=== PATIENT | male | born 1930 | race Caucasian/White ===

== ENCOUNTER → 2019-06-17 | Outpatient (CLI) | payer OTHER, BC ==
[~2019-06-17] MED LIST: AMARYL2 M1 PO; ASPIRIN325 PO; ATORVASTATIN CA40 MG PO; BUPROPION XL150 MG PO; CARBIDOPA-LEVO1 EAC9 PO; COQ-10100 MG PO; COREG25 MG PO; COREG3.125 MG PO; FISH OIL 1,001000 M2 PO; FUROSEMIDE 40 M40 MG PO; GLUMETZA500 PO; LASIX 40 MG TAB40 M2 PO; LIPITOR 20 MG T20 M1 PO; NEPHROCAPS QT1 EACH PO; PACERONE 200 M200 M1 PO; PAXIL30 MG PO; QUINU10 PD PO; SYNTHROID100 MC1 PO; SYNTHROID100 MCG PO; UNICOMPLEX M TA1 TA1 PO; ZOLOFT25 MG PO
== END ==
LOC: SJCVC 16:19
DX: I44.7 Left bundle-branch block, unspecified (principal); R94.31 Abnormal electrocardiogram [ECG] [EKG]; I25.5 Ischemic cardiomyopathy; I47.2 Ventricular tachycardia; E11.9 Type 2 diabetes mellitus without complications; K21.9 Gastro-esophageal reflux disease without esophagitis; E78.00 Pure hypercholesterolemia, unspecified; I10 Essential (primary) hypertension; E03.9 Hypothyroidism, unspecified; Z95.810 Presence of automatic (implantable) cardiac defibrillator; Z95.1 Presence of aortocoronary bypass graft; Z87.891 Personal history of nicotine dependence

== ENCOUNTER → 2019-06-28 | Outpatient (CLI) | payer OTHER, BC ==
[~2019-06-28] MED LIST changes: -AMARYL2 M1 PO; -BUPROPION XL150 MG PO; -CARBIDOPA-LEVO1 EAC9 PO; -COREG3.125 MG PO; -FUROSEMIDE 40 M40 MG PO; -GLUMETZA500 PO; -LIPITOR 20 MG T20 M1 PO; -PACERONE 200 M200 M1 PO; -PAXIL30 MG PO; -SYNTHROID100 MC1 PO
== END ==
LOC: SJCVCIMAG
DX: I08.3 Combined rheumatic disorders of mitral, aortic and tricuspid valves (principal); I25.5 Ischemic cardiomyopathy; G20 Parkinson's disease; Z95.5 Presence of coronary angioplasty implant and graft

== ENCOUNTER → 2019-06-29 | Outpatient (CLI) | payer OTHER, BC | LOC: RAD 16:32 | DX: R06.00 Dyspnea, unspecified (principal) ==

== ENCOUNTER → 2019-06-29 | Outpatient (CLI) | payer OTHER, BC ==
[~2019-06-29] MED LIST changes: +AMARYL2 M1 PO; +BUPROPION XL150 MG PO; +CARBIDOPA-LEVO1 EAC9 PO; +COREG3.125 MG PO; +FUROSEMIDE 40 M40 MG PO; +GLUMETZA500 PO; +LIPITOR 20 MG T20 M1 PO; +PACERONE 200 M200 M1 PO; +PAXIL30 MG PO; +SYNTHROID100 MC1 PO
== END ==
LOC: SJCVCIMAG 11:36
DX: Z45.02 Encounter for adjustment and management of automatic implantable cardiac defibrillator (principal); I44.7 Left bundle-branch block, unspecified; R94.31 Abnormal electrocardiogram [ECG] [EKG]; I47.2 Ventricular tachycardia; I25.5 Ischemic cardiomyopathy; I10 Essential (primary) hypertension; E11.9 Type 2 diabetes mellitus without complications; I25.810 Atherosclerosis of coronary artery bypass graft(s) without angina pectoris; K21.9 Gastro-esophageal reflux disease without esophagitis; J45.909 Unspecified asthma, uncomplicated; E03.9 Hypothyroidism, unspecified; E78.00 Pure hypercholesterolemia, unspecified; Z87.891 Personal history of nicotine dependence; Z95.1 Presence of aortocoronary bypass graft; Z79.82 Long term (current) use of aspirin; Z79.899 Other long term (current) drug therapy

== ENCOUNTER → 2019-07-07 | Outpatient (CLI) | payer OTHER, BC ==
[~2019-07-07] MED LIST changes: +MIRALAX17 GM PO; +SENNA-TIME S T1 EACH PO; +SORINE 80 MG TA80 M1 PO; +VITAMIN B-12500 MCG PO
== END ==
LOC: SJCVC 12:56
DX: Z45.02 Encounter for adjustment and management of automatic implantable cardiac defibrillator (principal); I25.810 Atherosclerosis of coronary artery bypass graft(s) without angina pectoris; I47.2 Ventricular tachycardia; E11.9 Type 2 diabetes mellitus without complications; G20 Parkinson's disease; I25.5 Ischemic cardiomyopathy; R55 Syncope and collapse; I10 Essential (primary) hypertension; E78.00 Pure hypercholesterolemia, unspecified; Z88.0 Allergy status to penicillin; Z79.899 Other long term (current) drug therapy; Z87.891 Personal history of nicotine dependence

== ENCOUNTER 2019-07-28 15:10 | Inpatient (IN) | payer OTHER, BC ==
[~2019-07-28] VITALS: Ht 167.6 cm; Wt 70.1 kg
[~2019-07-28 15:10] MED LIST changes: -AMARYL2 M1 PO; -BUPROPION XL150 MG PO; -CARBIDOPA-LEVO1 EAC9 PO; -COREG3.125 MG PO; -FUROSEMIDE 40 M40 MG PO; -GLUMETZA500 PO; -LIPITOR 20 MG T20 M1 PO; -MIRALAX17 GM PO; -PACERONE 200 M200 M1 PO; -PAXIL30 MG PO; -SENNA-TIME S T1 EACH PO; -SORINE 80 MG TA80 M1 PO; -SYNTHROID100 MC1 PO; -VITAMIN B-12500 MCG PO
[2019-07-28 15:19] VITALS: BP 151/60
[2019-07-28] MEDS ORDERED: FUROSEMIDE 40 M40 MG PO (15:54)
[2019-07-28] MEDS ORDERED: LIPITOR 20 MG T20 M1 PO (15:54)
[2019-07-28] MEDS ORDERED: COREG3.125 MG PO (15:54)
[2019-07-28] MEDS ORDERED: PAXIL30 MG PO (15:55)
[2019-07-28] MEDS ORDERED: SYNTHROID100 MC1 PO (15:55)
[2019-07-28] MEDS ORDERED: PACERONE 200 M200 M1 PO (15:56)
[2019-07-28] MEDS ORDERED: BUPROPION XL150 MG PO (15:56)
[2019-07-28] MEDS ORDERED: CARBIDOPA-LEVO1 EAC9 PO (15:57)
[2019-07-28] MEDS ORDERED: AMARYL2 M1 PO (15:57)
[2019-07-28 16:01] LABS: URINE BILIRUBIN NEGATIVE (Negative); URINE BLOOD NEGATIVE (Negative); URINE CLARITY CLEAR; URINE COLOR YELLOW; URINE GLUCOSE-RANDOM* NEGATIVE (Negative); URINE KETONES NEGATIVE (Negative); URINE LEUKOCYTES-REFLEX NEGATIVE (Negative); URINE NITRITE-REFLEX NEGATIVE (Negative); URINE PROTEIN (DIPSTICK) NEGATIVE (Negative); URINE SPECIFIC GRAVITY 1.015 (1.005-1.035); URINE UROBILINOGEN 0.2 E.U./dl (0.2-1.0)
[2019-07-28 16:10] LABS: ANION GAP 10 mmol/L (7-16); BUN 39 mg/dL (7-18); CALCIUM 10.1 mg/dL (8.5-10.1); CHLORIDE 97 mmol/L (98-107); CO2 29 mmol/L (21-32); CREATININE 2.1 mg/dL (0.7-1.3); GLUCOSE 104 mg/dL (74-106); SODIUM 136 mmol/L (136-145)
[2019-07-28 16:11] LABS: HEMOGLOBIN 14.1 gm/dL (14.0-18.0)
[2019-07-28 16:13] LABS: HEMATOCRIT 42.2 % (42.0-52.0); MCH 31.9 pg (26.0-34.0); MCHC 33.4 g/dL (28.0-37.0); MCV 95.6 fL (80.0-100.0); PLATELET COUNT 202 thou/uL (150-400); RBC 4.41 mil/uL (4.50-6.00); RDW 15.4 % (10.5-14.5); WBC 8.6 thou/uL (4.0-11.0)
[2019-07-28 16:20] LABS: ALBUMIN 3.7 g/dL (3.4-5.0); DIRECT BILIRUBIN 0.2 mg/dL (<0.1-0.2); LIPASE 49 U/L (73-393); SGOT 29 U/L (15-37); SGPT 13 U/L (30-65); TROPONIN-I <0.06 ng/mL (<0.06)
[2019-07-28 17:30] LABS: ABSOLUTE NEUTROPHILS 7.1 thou/uL (1.4-8.2); PLATELET ESTIMATE NORMAL
[2019-07-28 17:34] VITALS: BP 119/56
[2019-07-28 19:17] VITALS: BP 119/59
[2019-07-28 19:35] VITALS: BP 119/59
[2019-07-29] VITALS (10 sets, daily range): BP systolic 11–117; BP diastolic 50–83
[2019-07-29 05:17] LABS: ALBUMIN 3.1 g/dL (3.4-5.0); CALCIUM 8.9 mg/dL (8.5-10.1); PHOSPHORUS 3.5 mg/dL (2.5-4.9); POTASSIUM 3.7 mmol/L (3.5-5.1)
[2019-07-29 05:40] LABS: HEMATOCRIT 39.4 % (42.0-52.0); MCV 97.1 fL (80.0-100.0); RBC 4.06 mil/uL (4.50-6.00); RDW 15.7 % (10.5-14.5)
--- NOTE | 2019-07-29 08:07 | EKG ---
[facility] [place] [address] ELECTROCARDIOGRAM REPORT Name: MADELAINE RUIZ Room #: 207-P ADM IN M.R.#: [id number] Admission: 07/28/19 Attend Phys: Ariel Kohli MD Discharge: Date of : 08/30/30 Report #: [id number] THIS REPORT FOR: cc: Harry Thompson Eldwin R. DO Lundgren,Tyler Velasquez MD [facility] ~ THIS REPORT FOR: //name// [facility] ED Test Date: 2019-07-28 Test Time: 15:29:43 Pat Name: MADELAINE RUIZ Department: Room: 207 Gender: M Manager Oracle: AUBRIE : 1930 Requested By: Nando Alcantara Order Number: [id number] MD: Tyler Day Measurements Intervals [place] Rate: 64 P: UT: QRS: 66 QRSD: 187 T: QT: 511 QTc: 528 Interpretive Statements Sinus rhythm Left bundle branch block Baseline wander in lead(s) V2 Compared to ECG 04/26/2006 07:09:50 No significant change was found Electronically Signed On 07-29-2019 8:05:55 CDT by Tyler Day [email or web address] <ELECTRONICALLY SIGNED> By: Tyler Day MD, [facility] 07/29/19 0805 1529 1529 Tyler Day MD, [facility] /EPI
[2019-07-29 10:55] LABS: TSH 1.754 uIU/mL (0.358-3.740)
[2019-07-30 00:03] VITALS: BP 108/54
[2019-07-30 04:55] VITALS: BP 120/82
[2019-07-30 05:20] LABS: HEMATOCRIT 40.3 % (42.0-52.0); HEMOGLOBIN 13.3 gm/dL (14.0-18.0); MCH 32.5 pg (26.0-34.0); MCHC 32.9 g/dL (28.0-37.0); MCV 98.8 fL (80.0-100.0); RBC 4.08 mil/uL (4.50-6.00); RDW 15.7 % (10.5-14.5)
[2019-07-30 05:30] LABS: CREATININE 1.6 mg/dL (0.7-1.3); POTASSIUM 4.2 mmol/L (3.5-5.1)
[2019-07-30 08:10] VITALS: BP 116/47
[2019-07-30 15:50] VITALS: BP 99/45
[2019-07-30 21:19] VITALS: BP 131/63
[2019-07-31 04:45] VITALS: BP 121/64
[2019-07-31 05:10] LABS: HEMATOCRIT 38.2 % (42.0-52.0); HEMOGLOBIN 12.6 gm/dL (14.0-18.0); MCH 31.9 pg (26.0-34.0); MCHC 32.9 g/dL (28.0-37.0); MCV 97.1 fL (80.0-100.0); RBC 3.93 mil/uL (4.50-6.00); RDW 15.4 % (10.5-14.5); WBC 7.3 thou/uL (4.0-11.0)
[2019-07-31 05:13] LABS: CALCIUM 9.1 mg/dL (8.5-10.1); CREATININE 1.5 mg/dL (0.7-1.3); POTASSIUM 4.4 mmol/L (3.5-5.1)
[2019-07-31 07:50] VITALS: BP 134/48
[2019-07-31 16:35] VITALS: BP 108/46
[2019-07-31 19:40] VITALS: BP 116/80
[2019-08-01 05:04] VITALS: BP 120/51
[2019-08-01 07:05] VITALS: BP 107/69
[2019-08-01 10:54] LABS: CALCIUM 9.1 mg/dL (8.5-10.1); CREATININE 1.6 mg/dL (0.7-1.3); MAGNESIUM 1.7 mg/dL (1.8-2.4); POTASSIUM 4.8 mmol/L (3.5-5.1)
[2019-08-01 12:43] VITALS: BP 116/63
--- NOTE | 2019-08-01 13:05 | EKG ---
[facility] [place] [address] ELECTROCARDIOGRAM REPORT Name: MADELAINE RUIZ Room #: 207-P ADM IN M.R.#: [id number] Admission: 07/28/19 Attend Phys: Ariel Kohli MD Discharge: Date of : 08/30/30 Report #: [id number] THIS REPORT FOR: cc: Harry Thompson Eldwin R. DO Couchonnal, Luis F. MD ~ THIS REPORT FOR: //name// [facility] Test Date: 2019-07-31 Test Time: 08:59:12 Pat Name: MADELAINE RUIZ Department: Room: 207 P Gender: M Student Services Vice President: Jose RAHMAN : 1930 Requested By: Priscilla Man Order Number: [id number] MD: Jasper Loco Measurements Intervals [place] Rate: 65 P: 65 TX: 159 QRS: 67 QRSD: 181 T: -73 QT: 500 QTc: 520 Interpretive Statements Sinus rhythm Left bundle branch block Baseline wander in lead(s) V3 Compared to ECG 07/28/2019 15:29:43 No significant changes Electronically Signed On 08-01-2019 13:03:35 CDT by Jasper Loco [email or web address] <ELECTRONICALLY SIGNED> By: Jasper Loco MD 08/01/19 1303 0859 0859 Jasper Loco MD /EPI
--- NOTE | 2019-08-01 13:08 | EKG ---
[facility] [place] [address] ELECTROCARDIOGRAM REPORT Name: MADELAINE RUIZ Room #: 207-P ADM IN M.R.#: [id number] Admission: 07/28/19 Attend Phys: Ariel Kohli MD Discharge: Date of : 08/30/30 Report #: [id number] THIS REPORT FOR: cc: Harry Thompson Eldwin R. DO Couchonnal, Luis F. MD ~ THIS REPORT FOR: //name// [facility] Test Date: 2019-08-01 Test Time: 08:28:30 Pat Name: MADELAINE RUIZ Department: Room: 207 P Gender: M Jboss Developer: Krystyna THOMPSON : 1930 Requested By: Priscilla Man Order Number: [id number] MD: Jasper Loco Measurements Intervals [place] Rate: 60 P: [place]: 184 QRS: 82 QRSD: 158 T: 239 QT: 492 QTc: 492 Interpretive Statements Atrial-paced complexes IVCD, consider atypical LBBB Compared to ECG 07/28/2019 15:29:43 Sinus rhythm no longer present Electronically Signed On 08-01-2019 13:06:43 CDT by Jasper Loco [email or web address] <ELECTRONICALLY SIGNED> By: Jasper Loco MD 08/01/19 1306 7 7 Jasper Loco MD /EPI
[2019-08-01 15:30] VITALS: BP 98/49
[2019-08-01 19:55] VITALS: BP 105/62
[2019-08-02 00:56] LABS: HEMATOCRIT 36.3 % (42.0-52.0); HEMOGLOBIN 11.9 gm/dL (14.0-18.0); MCH 31.9 pg (26.0-34.0); MCHC 32.9 g/dL (28.0-37.0); MCV 96.9 fL (80.0-100.0); RBC 3.75 mil/uL (4.50-6.00); RDW 15.8 % (10.5-14.5)
[2019-08-02 01:05] LABS: CALCIUM 9.5 mg/dL (8.5-10.1); CREATININE 1.6 mg/dL (0.7-1.3); MAGNESIUM 1.9 mg/dL (1.8-2.4); POTASSIUM 4.5 mmol/L (3.5-5.1)
[2019-08-02 05:19] VITALS: BP 123/67
--- NOTE | 2019-08-02 07:43 | EKG ---
[facility] [place] [address] ELECTROCARDIOGRAM REPORT Name: MADELAINE RUIZ Room #: 207-P ADM IN M.R.#: [id number] Admission: 07/28/19 Attend Phys: Ariel Kohli MD Discharge: Date of : 08/30/30 Report #: [id number] THIS REPORT FOR: cc: Harry Thompson Eldwin R. DO Couchonnal, Luis F. MD ~ THIS REPORT FOR: //name// [facility] Test Date: 2019-08-02 Test Time: 06:41:26 Pat Name: MADELAINE RUIZ Department: Room: 207 P Gender: M Vice President: : 1930 Requested By: Priscilla Man Order Number: [id number] MD: Jasper Loco Measurements Intervals [place] Rate: 62 P: IN: 190 QRS: 103 QRSD: 178 T: -45 QT: 513 QTc: 521 Interpretive Statements Atrial-paced complexes Probable left ventricular hypertrophy Borderline T abnormalities, lateral leads Electronically Signed On 08-02-2019 7:42:05 CDT by Jasper Loco [email or web address] <ELECTRONICALLY SIGNED> By: Jasper Loco MD 08/02/19 0742 0641 Jasper Loco MD /EPI
[2019-08-02 08:13] VITALS: BP 123/59
[2019-08-02 08:17] VITALS: BP 123/67
[2019-08-02] MEDS ORDERED: SENNA-TIME S T1 EACH PO (09:31)
[2019-08-02] MEDS ORDERED: VITAMIN B-12500 MCG PO (09:31)
[2019-08-02] MEDS ORDERED: MIRALAX17 GM PO (09:31)
[2019-08-02] MEDS ORDERED: SORINE 80 MG TA80 M1 PO (09:43)
[2019-08-02] MEDS ORDERED: GLUMETZA500 PO (10:33)
== END 2019-08-02 15:10 | DRG 291 ==
LOC: ER 15:10 → EROBS 17:51 → 2N 17:51
PROVIDERS: Emergency Medicine; Nurse Practitioner Family; ADMIT Hospitalist
DX: I13.0 Hypertensive heart and chronic kidney disease with heart failure and stage 1 through stage 4 chronic kidney disease, or unspecified chronic kidney disease (principal); N17.0 Acute kidney failure with tubular necrosis; I47.2 Ventricular tachycardia; I48.91 Unspecified atrial fibrillation; I25.5 Ischemic cardiomyopathy; I25.10 Atherosclerotic heart disease of native coronary artery without angina pectoris; I50.9 Heart failure, unspecified; R55 Syncope and collapse; G20 Parkinson's disease; E78.5 Hyperlipidemia, unspecified; E78.00 Pure hypercholesterolemia, unspecified; F32.9 Major depressive disorder, single episode, unspecified; E03.9 Hypothyroidism, unspecified; E83.42 Hypomagnesemia; E11.22 Type 2 diabetes mellitus with diabetic chronic kidney disease; N18.9 Chronic kidney disease, unspecified; Z79.01 Long term (current) use of anticoagulants; K59.00 Constipation, unspecified; Z95.1 Presence of aortocoronary bypass graft; Z95.810 Presence of automatic (implantable) cardiac defibrillator; I25.2 Old myocardial infarction; Z79.82 Long term (current) use of aspirin; Z79.84 Long term (current) use of oral hypoglycemic drugs; Z79.899 Other long term (current) drug therapy; Z86.73 Personal history of transient ischemic attack (TIA), and cerebral infarction without residual deficits; Z88.0 Allergy status to penicillin
CPT/HCPCS: 10081

== ENCOUNTER 2019-07-30 11:46 | Inpatient (IN) | payer OTHER, BC ==
[~2019-07-30] VITALS: Ht 170.2 cm; Wt 71.2 kg
[~2019-07-30 11:46] MED LIST changes: +AMARYL2 M1 PO; +BUPROPION XL150 MG PO; +CARBIDOPA-LEVO1 EAC9 PO; +COREG3.125 MG PO; +FUROSEMIDE 40 M40 MG PO; +LIPITOR 20 MG T20 M1 PO; +PACERONE 200 M200 M1 PO; +PAXIL30 MG PO; +SYNTHROID100 MC1 PO
[2019-08-02] MEDS ORDERED: VITAMIN B-12500 MCG PO (09:31)
[2019-08-02] MEDS ORDERED: SENNA-TIME S T1 EACH PO (09:31)
[2019-08-02] MEDS ORDERED: MIRALAX17 GM PO (09:31)
[2019-08-02] MEDS ORDERED: SORINE 80 MG TA80 M1 PO (09:43)
[2019-08-02] MEDS ORDERED: GLUMETZA500 PO (10:33)
[2019-08-02 15:15] VITALS: BP 115/54
--- NOTE | 2019-08-02 15:21 | NUR ---
chart review, pt just arrived for 2n. pt new to acute rehab. unable to visit with pt via phone call rt bedside nurse in with pt at this time. per chart. pt lives at [facility], alone. has started using a walker rt weakness and multiple falls over past month. need to clarify if had to use elevator to walk to dinning room and if has any stairs needed to be used to get to his apartment. will cont following as needed for dc needs.
--- NOTE | 2019-08-02 15:25 | NUR ---
PT TRANSFERRED TO 5N, REPORT GIVEN TO JULES FERRELL, PT IN [facility] [employer], TELE AND IV REMOVED AND ALL BELONGINGS WITH HIM. HE WAS GREETED CHEERFULLY BY STAFF.
--- NOTE | 2019-08-02 17:33 | NUR ---
PT ARRIVED FROM CCU AT 1500. VITALS STABLE. A/O*4. DENIES PAIN AT THIS TIME. LS CLEAR. ABDOMEN SOFT BUT DISTENDED, LAST BM 2DAYS AGO, MILK OF MAGNESIUM ADMINISTERED PER PT'S REQUEST. HS STABLE, 2+ PEDAL PULSES. NO EDEMA NOTED. BRUISING NOTED ON ARMS AND BACK. REDNESS AROUND SACRAL AREA, NO OPEN SKIN. PT UP WITH 1 MIN ASSIST, GB AND WALKER AND TOLERATED WELL. Q1H VISUAL CHECKS. CALL LIGHT WITHIN REACH. FALL PRECAUTIONS IN PLACE
[2019-08-02 19:55] VITALS: BP 104/56
--- NOTE | 2019-08-03 00:51 | NUR ---
assumed care at approx 1900 evening 08/01. pt lying in bed with head of bed elevated resting. pt alert and oriented x4, forgetful, pleasant. pt stated he had not had a bm for 3 days and felt he needed to. pt given stool softeners and pt has had 2 formed and 1 loose bm so far tonight. pt now back to sleep appears to be sleeping soundly with hourly rounding. bed alarm on and call light in reach. will continue to monitor.
[2019-08-03 06:33] LABS: HEMATOCRIT 40.1 % (42.0-52.0); HEMOGLOBIN 13.4 gm/dL (14.0-18.0); MCH 32.5 pg (26.0-34.0); MCHC 33.3 g/dL (28.0-37.0); MCV 97.4 fL (80.0-100.0); RBC 4.12 mil/uL (4.50-6.00); RDW 16.3 % (10.5-14.5); WBC 7.8 thou/uL (4.0-11.0)
[2019-08-03 06:42] LABS: CALCIUM 9.7 mg/dL (8.5-10.1); CREATININE 1.6 mg/dL (0.7-1.3); POTASSIUM 4.8 mmol/L (3.5-5.1)
[2019-08-03 08:00] VITALS: BP 109/50
--- NOTE | 2019-08-03 09:10 | EKG ---
[facility] [address] [place] [address] ELECTROCARDIOGRAM REPORT Name: MADELAINE RUIZ Room #: 512-P ADM IN M.R.#: [id number] Admission: 08/02/19 Attend Phys: Gunner Trujillo MD Discharge: Date of : 08/30/30 Report #: [id number] THIS REPORT FOR: cc: Harry Thompson Eldwin R. DO Couchonnal, Luis F. MD ~ THIS REPORT FOR: //name// [facility] Test Date: 2019-08-03 Test Time: 08:02:04 Pat Name: MADELAINE RUIZ Department: Room: 512 P Gender: M Lead Nuclear Medicine Technologist: LUIS FELIPE : 1930 Requested By: Priscilla Man Order Number: [id number] MD: Jasper Loco Measurements Intervals [place] Rate: 60 P: 68 SD: 176 QRS: 69 QRSD: 178 T: -68 QT: 525 QTc: 525 Interpretive Statements Atrial-paced complexes Probable left atrial enlargement Nonspecific intraventricular conduction delay Compared to ECG 08/02/2019 06:41:26 Intraventricular conduction delay now present T-wave abnormality no longer present Electronically Signed On 08-03-2019 9:09:04 CDT by Jasper Loco [email or web address] <ELECTRONICALLY SIGNED> By: Jasper Loco MD 08/03/19908 1 1 Jasper Loco MD /EPI
--- NOTE | 2019-08-03 13:49 | NUR ---
team meeting recommendation: young team, dc on with family to assist with medication and bills. he will needs reminders to continue from family assistance to take his medication, hh and possible private duty. bedside nurse to give pt hh list choice and vendor form on pt chart. will cont following as needed for dc needs.
--- NOTE | 2019-08-03 16:19 | NUR ---
ASSUMED CARES AT 0700. PT ORIENTED TO PERSON,PLACE AND SITUATION. DENIES PAIN AT THIS TIME. VITALS REMAIN STABLE. CONTINUES TO HAVE SCATTERED BRUISING ON ARMS AND BACK. CONTINUES TO HAVE BLE WEAKNESS. PARTICIPATED IN ALL HIS THERAPIES AND TOLERATED WELL. Q1H VISUAL CHECKS. CALL LIGHT WITHIN REACH. FALL PRECAUTIONS IN PLACE
[2019-08-03 19:00] VITALS: BP 107/56
[2019-08-03 21:52] VITALS: BP 135/59
--- NOTE | 2019-08-04 01:17 | NUR ---
PT ALERT AND ORIENTED X 3. AMB TO BR WITH WALKER AND ASSIST X 1 WITHOUT DIFFICULTY. HAND TREMORS NOTED. AT 2150, PT REPORTED TO NURSE THAT HE WAS HAVING A PANIC ATTACK. PT DIAPHORETIC WITH WORSENING OF TREMORS. PT STATED HE HAS THESE AT HOME AND TAKES A PILL FOR IT. UNABLE TO NAME PILL. VSS. DENIES PAIN. TYRON BRYANT NP NOTIFIED WITH ORDERS RECEIVED. ATIVAN GIVEN AT 2230. PT RESTLESS FOR A WHILE BUT NOW APPEARS TO BE SLEEPING COMFORTABLY. BED ALARM ON FOR SAFETY. PT CHECKED ON HOURLY ROUNDS.
[2019-08-04 07:50] VITALS: BP 111/45
--- NOTE | 2019-08-04 13:44 | NUR ---
Call rec'd from [facility] requesting update on pt's progress and potential dc date and plan. Tentative dc plan for 08/12/19 with HH and family taking a bigger role with med mngt and finances; possible private duty. Evita indicates they will continue to bring pt's meals to his apt and verified that he does not have any stairs. Clinical update faxed to include H/P and therapy notes. Will follow.
--- NOTE | 2019-08-04 18:25 | NUR ---
ASSUMED CARE OF PT AT 0700. PT IS A&OX4 AND VITAL SIGNS ARE STABLE. ACCU CHECKS ACHS AND MANAGED WITH INSULIN. BLOOD GLUCOSE 58 AT 1600 CHECK, PT PROVIDED WTIH 8 OZ APPLE JUICE, RECHECK BLOOD GLUCOSE 71, INSULIN HELD. PT DENIES PAIN AND PARTICIPATED IN SCHEDULED THERAPIES. FALL PRECAUTIONS IN PLACE AND NURSING WILL CONTINUE TO MONITOR.
[2019-08-04 19:10] VITALS: BP 105/55
--- NOTE | 2019-08-05 03:27 | NUR ---
DECLINED HS SNACK WITH BLOOD SUGAR = 88, STATING THAT THAT IS VERY GOOD FOR HIM. UP TO TOILET WITH GAIT BELT AND WALKER EASILY FROM CHAIR, NEEDS A LITTLE MORE HELP GETTING UP TO VERTICAL AT SIDE OF BED, ENCOURAGED TO GET UP SLOWLY IN ANY EVENT FOR ORTHOSTATIC REASON, DENIES DIZZINESS. CALLS FOR HELP SOON AFTER USING CALL LIGHT.
[2019-08-05 08:00] VITALS: BP 137/60
[2019-08-05 11:28] VITALS: BP 114/60; BP 132/57
--- NOTE | 2019-08-05 15:30 | NUR ---
CM PROVIDED DAUGHTER ESMER SENIOR BLUE BOOK, AND DISCUSSED HH " [facility] WILL BE FINE"/[facility]. REFERRAL TO BE SENT OUT FOR HH.
--- NOTE | 2019-08-05 20:11 | NUR ---
ASSUMED CARE OF PT AT 0700. PT IS A&OX3 AND VITAL SIGNS ARE STABLE. PT DENIES PAIN AND PARTICIPATED IN SCHEDULED THERAPIES. ACCU CHECKS ACHS AND MANAGED WITH INSULIN PER ORDERS. PHYSICAL THERAPY REPORTED ORTHOSTATIC HYPOTENSION DURING SESSION, CARDIOLOGY NOTIFIED. PT BECAME INCREASINGLY CONFUSED AND IMPULSIVE IN AFTERNOON AND EVENING. FALL PRECAUTIONS IN PLACE AND NURSING WILL CONTINUE TO MONITOR.
[2019-08-05 21:00] VITALS: BP 132/63
--- NOTE | 2019-08-06 03:29 | NUR ---
BLOOD SUGAR 153 AT HS. UP TO SIT IN DINING ROOM AT 1930 BECAUSE OF WANTING TO SEE WHAT'S GOING ON. MASK ON BECAUSE OF CURRENT COVID STRATEGY. ABLE TO WALK TO TOILET FOR CONTINENT VOIDS, ABLE TO ZIP BUT NOT BUTTON PANTS, WEARIMG PANTS OVERNIGHT BY HIS CHOICE HE DID NOT WANT TO WEAR A GOWN TONIGHT. AT 0230, HE CALLED OUT VERBALLY FOR HELP UP TO TOILET WITHOUT USING CALL LIGHT. ENCOURAGED TO GET UP FROM BED SLOWLY IN ORDER TO AVOID DIZZINESS.
--- NOTE | 2019-08-06 05:00 | NUR ---
PATIENT WAS UNHAPPY ABOUT HAVING BLOOD DRAWN THIS MORNING SAYING THAT HE NEEDED ALL OF HIS AND C/O PAIN FROM THE [facility] AND THAT THIS WAS INCARCERATION. NOW, JUST A FEW MINUTES LATER, THE BED IS ALARMING AND HE IS KNEELING AT THE EDGE OF THE BED, HE DENIES FALLING BUT ADMITS THAT HE WAS TRYING TO GET TO THE BATHROOM AND IS TOO WEAK TO STAND UP. ASSISTED TO STANDING POSITION WITH GAIT BELT WITH PATIENT COMPLAINING THAT THE BELT IS ALSO AGAINST HIS WILL AND HE DOES NOT WANT IT. I EXPLAINED THAT I NEED TO USE IT TO KEEP HIM FROM FALLING, USING WALKER, GAIT BELT, AND CONTACT GUARD ASSIST TO ASSIST PATIENT TO SIT ON TOILET FOR VOIDING. PATIENT HAS DECIDED THAT HE WANTS TO SIT IN A WHEELCHAIR FOR NOW. TAKING MORNING MEDS. TOES EXAMINED FOR BRUISING SINCE THEY ARE HIS ONLY C/O PAIN; NO INCREASE IN PAIN WITH MANUAL PRESSURE.
[2019-08-06 05:58] LABS: HEMATOCRIT 38.3 % (42.0-52.0); HEMOGLOBIN 12.6 gm/dL (14.0-18.0); MCHC 32.8 g/dL (28.0-37.0); MCV 97.5 fL (80.0-100.0); PLATELET COUNT 249 thou/uL (150-400); RBC 3.93 mil/uL (4.50-6.00); RDW 15.9 % (10.5-14.5); WBC 8.6 thou/uL (4.0-11.0)
[2019-08-06 06:11] LABS: CALCIUM 9.1 mg/dL (8.5-10.1); CREATININE 1.7 mg/dL (0.7-1.3); MAGNESIUM 2.2 mg/dL (1.8-2.4)
[2019-08-06 07:20] VITALS: BP 136/70
[2019-08-06 08:14] LABS: ABSOLUTE NEUTROPHILS 5.3 thou/uL (1.4-8.2); ATYPICAL LYMPHS 1 %; MYELOCYTES 1 %
[2019-08-06 08:15] LABS: LARGE PLATELETS FEW
--- NOTE | 2019-08-06 09:10 | NUR ---
ESMER RUIZ [phone] NOTIFIED OF PATIENT ON FLOOR THIS MORNING
[2019-08-06 13:24] LABS: URINE BILIRUBIN NEGATIVE (Negative); URINE BLOOD NEGATIVE (Negative); URINE CLARITY CLEAR; URINE COLOR YELLOW; URINE GLUCOSE-RANDOM* NEGATIVE (Negative); URINE KETONES NEGATIVE (Negative); URINE LEUKOCYTES-REFLEX NEGATIVE (Negative); URINE NITRITE-REFLEX NEGATIVE (Negative); URINE PROTEIN (DIPSTICK) 1+ (Negative)
[2019-08-06 13:33] LABS: SQUAMOUS None Seen /LPF (0-3)
[2019-08-06 13:34] LABS: BACTERIA-REFLEX 1-9 Few /HPF (None Seen); CASTS None Seen /LPF (None Seen); CRYSTALS None Seen /LPF (None Seen); URINE RBC None Seen /HPF (0-2); URINE WBC-REFLEX 0-5 Rare /HPF (0-5)
[2019-08-06 19:29] VITALS: BP 110/50
--- NOTE | 2019-08-06 20:07 | NUR ---
ASSUMED CARE OF PT AT 0700. PT IS A&OX3-4 AND VITAL SIGNS ARE STABLE. PT IS MORE IRRITABLE, ANXIOUS AND IMPULSIVE THIS SHIFT. UA AND HEAD CT ORDERED, PROVIDER AWARE OF RESULTS. ACCU CHECKS ACHS AND MANAGED WITH INSULIN PER ORDERS. DENIES PAIN AND PARTICIPATED IN SCHEDULED THERAPIES. PT REPORTS CONSTIPATION AND WAS ADMINISTERED SCHEDULED MIRALAX IN PRUNE JUICE, NO RESULTS AT THIS TIME. FALL PRECAUTIONS IN PLACE AND NURSING WILL CONTINUE TO MONITOR.
--- NOTE | 2019-08-07 05:19 | NUR ---
ASSUMED PT CARE AROUND 1930. AXOX3. DOES NOT USE CALL LIGHT APPROPRIATELY. IMPULSIVE TO GET UP TO USE THE BATHROOM. FALL PRECAUTIONS IN PLACE. NO S/S ACUTE DISTRESS NOTED OR REPORTED AT THIS TIME. WILL CONT TO MONITOR FOR ANY CHANGES IN CONDITION,
[2019-08-07 08:00] VITALS: BP 132/58
--- NOTE | 2019-08-07 14:35 | NUR ---
ASSUMED CARE AT 0700. PATIENT IS ALERT AND ORIENTED X2, PATIENT MAYERS'S, TEACHER OF THE EMOTIONALLY DISTURBED ARE EQUAL. LUNGS ARE CLEAR. ABD IS SOFT WITH BSX4. UP IN BED FOR BREAKFAST, BUT HE REFUSED. PATIENT HAS LEOLA HAND TREMORS. PATIENT IS UP TO THE BATHROOM TO VOID ALEXANDRA COLORED URINE. UP IN THE CHAIR AFTER O.T. TODLAY. FALL AND SAFETY PROTOCOLS IN PLACE. C/O STOMACH PAIN. LEMON-QUINAULT SODA GIVEN. CONTINUES TO PROGRESS SLOWLY TOWARDS D/C GOALS. WILL CONTINUE TO MONITER.
[2019-08-07 20:56] VITALS: BP 122/53
--- NOTE | 2019-08-08 00:38 | NUR ---
TOOK OVER PT CARE AT 1900. ASSESSMENT DONE AND VSS. FALL PRECAUTIONS IN PLACE. MEDS GIVEN AND WELL TOLERATED. HOURLY ROUNDING. CALL LIGHT IN REACH. WILL CONTINUE TO MONITOR.
[2019-08-08 07:20] VITALS: BP 112/55
--- NOTE | 2019-08-08 09:53 | NUR ---
ASSUMED CARE AT 0700. PATIENT IS ALERT AND ORIENTED X 1-2. PATIENT MAYERS, STAFFING AND SCHEDULING COORDINATOR ARE EQUAL. LUNGS ARE CLEAR. ABD IS SOFT WITH BSX4. UP WITH WALKER AND GAIT BELT TO THE DINING ROOM FOR BREAKFAST. PATIENT CONTINUES TO HAVE TREMORS IN HER UPPER EXTREMITIES. PATIENT IS [place]. PATIENT HAS HX OF DEMENTIA. FALL AND SAFETY PROTOCOLS IN PLACE. DENIES PAIN AT THIS TIME. CONTINUES TO PROGRESS TOWARDS D/C GOALS. WILL CONTINUE TO MONITER.
[2019-08-08 11:59] LABS: CALCIUM 9.1 mg/dL (8.5-10.1); CREATININE 1.7 mg/dL (0.7-1.3); POTASSIUM 4.7 mmol/L (3.5-5.1)
[2019-08-08 19:00] VITALS: BP 112/58
--- NOTE | 2019-08-09 03:28 | NUR ---
HAS USED CALL LIGHT ONCE PRIOR TO SHOES, GAIT BELT, WALKER AND CONTACT GUARD ASSIST UP TO USE TOILET. HAS BEEN UP TWO OTHER TIMES IN SIMILAR FASHION, THE LATEST TIME HE STARTED BY GENTLY SAYING "HELP". APPRECIATED CLONAZEPAM AND REMEMBERED THE DOCTOR TELLING HIM THAT HE WOULD DECREASE HIS DOSE (FROM 0.5 TO 0.25 IN FACT) FOLLOWING VOCAL COMMANDS TO SIDESTEP
[2019-08-09 07:45] VITALS: BP 132/67
--- NOTE | 2019-08-09 13:20 | NUR ---
FAXED REFERRAL TO [facility] SPOKE WITH BILLY IN INTAKE SHE RECEIVED REFERRAL AND WILL REVIEW. ANTICIPATE DC 08/11. DP TO FOLLOW.
--- NOTE | 2019-08-09 13:32 | NUR ---
ASSUMED CARES AT 0700. PT AWAKE, ORIENTED TO PERSON AND PLACE ONLY, FORGETFUL. DENIES PAIN. VITALS REMAIN STABLE. PT CHOKING ON LUNCH, COUGHING, STATED THAT HE WAS CHOKING ON CHIPS. PT ABLE TO DISLODGE CHIP WITH COUGHING AND WAS STABLE AFTER. PARTICIPATED IN ALL THERAPIES AND TOLERATED WELL. Q1H VISUAL CHECKS. CALL LIGHT WITHIN REACH. FALL PRECAUTIONS IN PLACE
[2019-08-09 14:13] VITALS: BP 132/67
[2019-08-09 19:07] VITALS: BP 137/65
--- NOTE | 2019-08-10 00:42 | NUR ---
PT ASSESSMENT COMPLETED AND VSS. MEDS GIVEN ORDERED AND WELL TOLERATED. FALL PRECAUTIONS IN PLACE. UP TO THE BATHROOM WITH ASST/GAIT/WALKER. STEADY. SOFT BM X 3 AT HS. ASST WITH REPOSITION FOR COMFORT. PT VERY IMPULSIVE AND GETS UP QUICKLY. PT VERY CONFUSED AT HS. HARD TO REORIENT. BUT PT WILL FOLLOW BASIC COMMANDS. SLEEPING WELL AT THIS TIME. WILL CONTINUE TO MONITOR FREQUENTLY.
[2019-08-10 07:47] VITALS: BP 123/63
--- NOTE | 2019-08-10 12:43 | NUR ---
team meeting, recommendation: initial 24hr supervision and assistance with mobility and adls and cooking. hh jennifer (pt, ot, nursing). dc will see if pt and daughter jeannine if can meet his needs with private duty, if not will need to look into other dcp.
--- NOTE | 2019-08-10 19:30 | NUR ---
ASSUMED CARE AT 0700. PATIENT IS ALERT AND ORIENTED X 1-2. REASSESSMENT PER CHART. NOVELTY WORKER ARE EQUAL. LUNGS ARE CLEAR. ABD IS SOFT WITH BSX4. HAD BM TODAY. UP WITH WALKER AND GAIT BELT TO THE DINING ROOM FOR MEALS. ABLE TO FEED HIMSELF HAS GOOD APPETITE. PATIENT CONTINUES TO HAVE TREMORS IN HER UPPER EXTREMITIES. CONTINUE TO BE ON [facility].PATIENT IS TETLIN. PATIENT HAS HX OF DEMENTIA. FALL AND SAFETY PROTOCOLS IN PLACE. DENIES PAIN. OFFERED SUPPORTIVE CARE. MOVE RECLINER NEAR DOOR TO VISUAL PT BETTER. PT FORGETFUL, BUT FOLLOW COMMAND TODAY. HE SAID HE HAS GOOD DAY. PT MORE ENGAGED WITH THERAPY AND PARTICIPATED WELL WITH THIS ATTENDANCE SECRETARY. CONTINUES TO PROGRESS TOWARDS D/C GOALS. GAVE REPORT TO NIGHT NURSE TO CONTINUE TO MONITOR.
[2019-08-10 19:35] VITALS: BP 121/56
[2019-08-11 08:00] VITALS: BP 114/53
--- NOTE | 2019-08-11 08:24 | NUR ---
PROGRESS PT UP WITH CGA GB AND WALKER AMBUATES STEADILY. DENIES PAIN ACCUCHECKS CONTINUE VSS, ICD NOTED IN LEFT CHEST DIETARY INTAKE IMPROVED CONTINUE TO MONITOR AND ASSIST ACTIVITY FOR SAFETY.
--- NOTE | 2019-08-11 10:47 | NUR ---
ASSUMED CARE AT 0700. NIGHT RN SAID HE DID GOOD LAST NIGHT. HAS NO SUNDOWN SYNDROME. PATIENT IS ALERT AND ORIENTED X 1-2. REASSESSMENT PER CHART. PT UP WITH WALKER AND GAIT BELT TO RECLINER FOR BREAKFAST. LOVES TO HAVE COFFEE IN THE AM. ABLE TO FEED HIMSELF HAS GOOD APPETITE. PATIENT CONTINUES TO HAVE TREMORS IN HER UPPER EXTREMITIES. CONTINUE TO BE ON [facility].PATIENT IS QUINAULT. PATIENT HAS HX OF DEMENTIA. OFFERED SUPPORTIVE CARE. DISCUSSED ABOUT CARE PLAN FOR TODAY. MORNING MEDS GIVEN. PT SAID I DON'T WANT LAXATIVE SINCE I HAVE COUPLE BM LAST NIGHT. PT IS FORGETFUL, HAD ONE BM YESTERDAY. OK TO GAVE DAY, HELD [employer]. PT IS UP WITH PHYSICAL THERAPIST, WORKING ON STAIRS. HE DID GREAT. OFFERED SUPPORT AND ENCOURAGEMENT. FALL AND SAFETY PROTOCOLS IN PLACE. DENIES PAIN. PARTICIPATED WELL WITH THIS RESIDENCE COUNSELOR. CONTINUES TO PROGRESS TOWARDS D/C GOALS. FALL PRECAUTION IN PLACE. CHECK FREQUENTLY FOR NEEDS AND SAFETY. WILL CONTINUE TO MONITOR.
--- NOTE | 2019-08-11 11:00 | NUR ---
NOTIFIED [facility] SPOKE WITH JULY IN INTAKE THAT PT WILL DC TO HIS DTR'S HOME GAVE ADDRESS INFO. PT TO DC TOMORROW.
[2019-08-11 13:15] VITALS: BP 132/67
--- NOTE | 2019-08-11 14:58 | NUR ---
Susi at [facility] called to check on the pt and confirm his dc plan for home with son/Dtr in [place] tomorrow with hh.
[2019-08-11 19:09] VITALS: BP 112/62
--- NOTE | 2019-08-12 03:56 | NUR ---
[facility] at approx 1900 evening 08/10. pt sitting up in recliner at change of shift very impulsive getting up on his own without calling for help. pts chair alarm on. pt assisted into bed and since then has been sleeping soundly with hourly rounding checks. bed alarm on and call light in reach. will continue to monitor.
[2019-08-12 07:13] LABS: CALCIUM 8.9 mg/dL (8.5-10.1); CREATININE 1.7 mg/dL (0.7-1.3); POTASSIUM 4.9 mmol/L (3.5-5.1)
[2019-08-12 08:00] VITALS: BP 130/80
[2019-08-12] MEDS ORDERED: CLONAZEPAM 0.50.5 M1 PO (08:16)
[2019-08-12] MEDS ORDERED: MIRALAX17 GM PO (08:18)
[2019-08-12] MEDS ORDERED: SORINE 80 MG TA80 M1 PO (08:18)
--- NOTE | 2019-08-12 11:14 | NUR ---
ASSUMED CARE AT 0700. PATIENT IS ALERT AND ORIENTED X2. PATIENT MAYERS'S, SUPERCALENDER OPERATOR ARE EQUAL . LUNGS ARE CLEAR AND DEMINISHED, ABD IS SOFT WITH BSX4. UP TO THE BR WITH ASSIST OF 1 STAFF AND GAIT BELT. UP IN SIDE OF BED TO HAVE BREAKFAST. FALL AND SAFETY PROTOCOLS IN PLACE. DENIES PAIN. CONTINUES TO PROGRESS TOWARDS D/C GOALS. PLAN D/C TO HOME TODAY. WILL CONTINUE TO MONITER.
--- NOTE | 2019-08-12 15:23 | NUR ---
PT DISCHARGING TODAY TO HOME WITH [facility] FAXED DC ORDERS/SUMMARY SPOKE WITH JULY IN INTAKE SHE RECEIVED ORDERS AND WILL NOTIFY PT TIME OF VISITS.
[2019-08-12 15:29] VITALS: BP 132/67
--- NOTE | 2019-08-13 11:03 | PLAN ---
[facility] [place] [address] REHAB UNIT PLAN OF CARE Name: MADELAINE RUIZ Room #: 512-P [facility] IN M.R.#: [id number] Admission: 08/02/19 Attend Phys: Gunner Trujillo MD Discharge: 08/12/19 Date of : 08/30/30 Report #: [id number] THIS REPORT FOR: //name// CC: Gunner Thompson DATE OF SERVICE: 08/04/2019 PROGRESS NOTE AND OVERALL PLAN OF CARE HISTORY OF PRESENT ILLNESS: The patient is seen back today in followup. He is in no distress. Temperature 36.4, pulse 59, respirations 20, and blood pressure is 107/56. He is alert. No specific complaints. He has been working in therapies with transfers, sit to stand, standby assistance, gait contact guard 200 feet front-wheeled walker. He started to work on stairs. Lower body dressing is max assist with upper body min assist. Speech therapy is also working with him with [id number] cognitive deficits and severe memory. When working with his functional mobility. He does have some rigidity and retropulsion. Working on higher level balance issues with his Parkinson's, which appears to be improving. He can have some decreased safety with turning. ASSESSMENT: An 88-year-old male with the following problem list: 1. Parkinson's disease. 2. Syncope with presyncope episodes. 3. Coronary artery disease, status post coronary artery bypass grafting. 4. Ischemic cardiomyopathy, status post automatic implantable cardioverter-defibrillator. 5. Hypertension. 6. Hyperlipidemia. 7. Chronic kidney disease. 8. Diabetes mellitus type 2. PLAN: The overall plan of care is based on the preadmission screen, post-admission physician evaluation and information garnered from therapy assessments. 1. Estimated length of stay is as per the team conference yesterday with a plan for next , 08/12/2019. 2. Medical prognosis is reasonably good. 3. Anticipated interventions includes the interdisciplinary acute inpatient rehabilitation program. 4. Anticipated functional outcomes would be for the patient to become modified independent with transfers, mobility, ADLs, improvement in cognition, so he could hopefully return back to the home setting. He will need reminders to continue from family to take his medications. 5. Discharge destination would be back to his independent living apartment. Again, he is going to need some home healthcare [place] [address] REHAB UNIT PLAN OF CARE Name: MADELAINE RUIZ Room #: 512-P [facility] IN [facility]#: [id number] Admission: 08/02/19 Attend Phys: Gunner Trujillo MD Discharge: 08/12/19 Date of : 08/30/30 Report #: [id number] family. 6. Expected therapy by discipline includes PT, OT and speech 1 hour per day each five days a week throughout the duration of the acute inpatient rehabilitation stay. <ELECTRONICALLY SIGNED> By: Gunner Trujillo MD 08/13/19 1103 0929 1119 Gunner Trujillo MD /darío
--- NOTE | 2019-08-13 11:03 | H ---
[facility] [place] [address] HISTORY AND PHYSICAL Name: MADELAINE RUIZ Room #: 512-P [facility] M.R.#: [id number] Admission: 08/02/19 Attend Phys: Gunner Trujillo MD Discharge: 08/12/19 Date of : 08/[birth year] Report #: [id number] THIS REPORT FOR: cc: Harry Thompson Eldwin R. DO Smithson,Gunner Umaña MD ~ CC: Gunner Thompson DATE OF SERVICE: 08/02/2019 HISTORY AND PHYSICAL AND POST-ADMISSION PHYSICIAN EVALUATION. HISTORY OF PRESENT ILLNESS: The patient is an 88-year-old white male who was originally admitted on 07/28/2019 with complaints of weakness, falls, dizziness. He had complaints of "tunnel vision." He did not know if he lost consciousness with the falls. He was seen by Cardiology and his ICD was interrogated. He had recent medication changes to amiodarone as an outpatient due to the weakness. He has Parkinson's disease diagnosed 2 years ago, on Sinemet and has had a physical decline over the past 6 months or so. Cardiology has been closely involved regarding his medication management. He has the Parkinson's, on Sinemet with decreased function, resting tremor, gait instability and falls. He has now been admitted for acute in-hospital inpatient rehabilitation. PAST MEDICAL HISTORY: Includes diabetes, heart disease, hypertension, renal disease. MEDICATIONS: Please see the full medication listing. HABITS: Nonsmoker, occasional alcohol usage. SOCIAL HISTORY: The patient lives in an independent living apartment alone, was independent with ADLs and IADLs. He has a history of falls. ALLERGIES: PENICILLIN. REVIEW OF SYSTEMS: No current complaints of chest pain, shortness of breath or abdominal discomfort. PHYSICAL EXAMINATION: GENERAL: An 88-year-old white male who was seen yesterday post-discharge. He was alert, pleasant. HEENT: Appeared to be benign. Cranial nerves are grossly intact. VITAL SIGNS: Vitals are as noted with temperature 97.4, pulse 62, respirations 22, blood pressure 115/54. CHEST: Sounded clear to auscultation. [facility] [address] [place] [address] HISTORY AND PHYSICAL Name: MADELAIEN RUIZ Room #: 512-P [facility].#: [id number] Admission: 08/02/19 Attend Phys: Gunner Trujillo MD Discharge: 08/12/19 Date of : 08/30/30 Report #: [id number] CARDIOVASCULAR: Regular rate and rhythm. ABDOMEN: Bowel sounds positive, nontender. GENITOURINARY AND RECTAL: Deferred. EXTREMITIES: He does have bilateral upper extremity tremors with some cogwheeling, wrists and elbows, no significant rigidity, some decreased end range of motion of both upper extremities. 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 Functionally, he does tend to be retropulsive, has decreased balance. He has been min assist coming to stand and utilized a front-wheeled walker short distances. ASSESSMENT: An 88-year-old white male with the following problem list: 1. Parkinson's disease. 2. Syncope with presyncopal episodes. 3. Coronary artery disease, status post coronary artery bypass grafting. 4. Ischemic cardiomyopathy, status post automatic implantable cardioverter-defibrillator. 5. Hypertension. 6. Hyperlipidemia. 7. Chronic kidney disease. 8. Type 2 diabetes mellitus. PLAN: The patient has been admitted for acute in-hospital inpatient rehabilitation. From a postadmission physician evaluation perspective, there are no relevant changes since the preadmission screening. Please see the above review of prior and current medical and functional conditions and comorbidities. Please see the patient's previous and current functional status. As far as risk of complications, the patient has multiple medical comorbidities as noted above. Initial plan of care involves the interdisciplinary acute inpatient rehabilitation program. Measurable functional goals would be for the patient to become modified independent with transfers, mobility, ADLs, so that he can hopefully return back to his prior living situation. Prognosis is reasonably good. Estimated length of stay probably at least 10 days to 2 weeks. Potential barriers would include his multiple medical comorbidities and decreased functional status. The patient meets diagnostic criteria for an acute in-hospital inpatient rehabilitation stay. He meets the medical necessity criteria. He does have the tolerance for therapies and has appropriate discharge goals back to the home setting. <ELECTRONICALLY SIGNED> By: Gunner Trujillo MD 08/13/19 [id number] Gunner Trujillo MD /nt
== END 2019-08-12 16:23 | disposition home health service (06) | DRG 57 ==
PROVIDERS: Internal Medicine; Nurse Practitioner; Nurse Practitioner Family; ADMIT Physical Medicine & Rehabilitation
DX: G20 Parkinson's disease (principal); N17.9 Acute kidney failure, unspecified; I47.2 Ventricular tachycardia; I25.10 Atherosclerotic heart disease of native coronary artery without angina pectoris; I25.5 Ischemic cardiomyopathy; I12.9 Hypertensive chronic kidney disease with stage 1 through stage 4 chronic kidney disease, or unspecified chronic kidney disease; N18.9 Chronic kidney disease, unspecified; E11.22 Type 2 diabetes mellitus with diabetic chronic kidney disease; E78.5 Hyperlipidemia, unspecified; E11.649 Type 2 diabetes mellitus with hypoglycemia without coma; E78.00 Pure hypercholesterolemia, unspecified; F01.50 Vascular dementia, unspecified severity, without behavioral disturbance, psychotic disturbance, mood disturbance, and anxiety; F32.9 Major depressive disorder, single episode, unspecified; E03.9 Hypothyroidism, unspecified; F41.9 Anxiety disorder, unspecified; Z95.1 Presence of aortocoronary bypass graft; Z95.810 Presence of automatic (implantable) cardiac defibrillator; Z88.0 Allergy status to penicillin; I25.2 Old myocardial infarction; Z87.891 Personal history of nicotine dependence; Z79.899 Other long term (current) drug therapy
CPT/HCPCS: 10112

== ENCOUNTER → 2019-10-13 | Outpatient (CLI) | payer OTHER, BC ==
[~2019-10-13] MED LIST changes: +CLONAZEPAM 0.50.5 M1 PO; +GLUMETZA500 PO; +MIRALAX17 GM PO; +SENNA-TIME S T1 EACH PO; +SORINE 80 MG TA80 M1 PO; +VITAMIN B-12500 MCG PO
== END ==
LOC: SJCVC 15:00
PROVIDERS: ATTEND Internal Medicine Cardiovascular Disease
DX: Z45.02 Encounter for adjustment and management of automatic implantable cardiac defibrillator (principal); I47.2 Ventricular tachycardia; I25.5 Ischemic cardiomyopathy; I10 Essential (primary) hypertension; E78.00 Pure hypercholesterolemia, unspecified; E11.9 Type 2 diabetes mellitus without complications; G20 Parkinson's disease; Z71.89 Other specified counseling; Z79.899 Other long term (current) drug therapy; Z87.891 Personal history of nicotine dependence